=== PATIENT | male | born 1985 | race Caucasian/White ===

== ENCOUNTER 2018-04-27 16:21 | Emergency (ER) | payer OTHER ==
[~2018-04-27] VITALS: Ht 188 cm; Wt 108.9 kg
[2018-04-27] MEDS ORDERED: DULERA 100 MCG/13 GM (16:31)
== END 2018-04-27 20:42 | disposition home or self-care (01) ==
LOC: ER 16:21
DX: S80.02XA Contusion of left knee, initial encounter (principal); W18.39XA Other fall on same level, initial encounter; Y93.64 Activity, baseball; Y92.39 Other specified sports and athletic area as the place of occurrence of the external cause; Y99.8 Other external cause status